=== PATIENT | female | born 1950 | race Caucasian/White ===

== ENCOUNTER 2017-06-20 13:13 | Inpatient (IN) | payer MEDICARE ==
[~2017-06-20] VITALS: Ht 172.7 cm; Wt 102.1 kg
[~2017-06-20 13:13] MED LIST: ARIP15TA7 PO; CLON1TAB4 PO; DES150 PO; LAMO200T PO; SERT-112 PO
[2017-06-20] MEDS ORDERED: IPRATROPIUM BROMIDE (0.02%) 0.5MG/2.5ML NEB HHN STA (13:32)
[2017-06-20] MEDS ORDERED: METHYLPREDNISOLONE SOD SUCC 125 MG/2 ML VIAL IV STA (13:32)
[2017-06-20] MEDS ORDERED: ALBUTEROL (0.083%) 2.5MG/3ML NEB HHN STA (13:32)
[2017-06-20] MEDS ORDERED: MAGNESIUM 2 G PREMIX 50 ML IV ONE (13:45)
[2017-06-20 14:21] LABS: BASOPHILS % 0.2 % (0.0-2.0); EOSINOPHILS % 0.1 % (0.0-5.0); HEMOGLOBIN. 12.2 g/dL (12.0-16.0); LYMPHOCYTES % 7.2 % (20.0-50.0); MEAN CORPUSCULAR HEMOGLOBIN 29.1 pg (28.0-32.0); MEAN CORPUSCULAR VOLUME 88.4 fL (81.0-99.0); MEAN PLATELET VOLUME 7.6 fl (7.4-10.4); MONOCYTES % 3.3 % (2.0-8.0); NEUTROPHILS % 89.2 % (40.0-76.0); PLATELET 184 x1000/uL (130-400); RED BLOOD CELL COUNT 4.19 mill/uL (4.2-5.4); RED CELL DISTRIBUTION WIDTH 14.4 % (11.6-14.6)
[2017-06-20 14:28] LABS: INR 1.1; PROTHROMBIN TIME 11.9 sec (9.4-11.6)
[2017-06-20 15:04] LABS: BG BASE EXCESS 0.4 mmol/L (-2.0-2.0); BG BILEVEL POS AIRWAY PRESSURE 15/5; BG CARBOXYHEMOGLOBIN 0.5 % (0.5-1.5); BG DEOXYHEMOGLOBIN 0.7 % (0.0-5.0); BG FRACTION INSPIRED OXYGEN 100; BG HCO3 ACT 25.7 mmol/L (22.0-26.0); BG METHEMOGLOBIN 0.3 % (0.0-1.5); BG OXYGEN SATURATION 99.3 % (92.0-98.5); BG OXYHEMOGLOBIN 98.5 % (94.0-97.0); BG PCO2 44.1 mmHg (35.0-45.0); BG PH 7.383 (7.350-7.450); BG PO2 263.1 mmHg (75.0-100.0); BG SAMPLE SITE RIGHT BRACHIAL; BG VENT MODE MASK - BIPAP
[2017-06-20 15:28] LABS: CARBON DIOXIDE 27 mEq/L (21-32); CHLORIDE 104 mEq/L (98-107)
[2017-06-20 15:30] LABS: *AMPHETAMINES SCREEN URINE NEGATIVE (NEGATIVE); *BARBITURATES SCREEN URINE NEGATIVE (NEGATIVE); *BENZODIAZEPINES SCREEN URINE NEGATIVE (NEGATIVE); *COCAINE SCREEN URINE NEGATIVE (NEGATIVE); CANNABINOID URINE SCREEN NEGATIVE (NEGATIVE); METHADONE URINE SCREEN NEGATIVE (NEGATIVE); OPIATES URINE SCREEN NEGATIVE (NEGATIVE); PHENCYCLIDINE URINE SCREEN NEGATIVE (NEGATIVE)
[2017-06-20 15:36] LABS: TROPONIN I < 0.02 ng/mL (0.00-0.04)
[2017-06-20] MEDS ORDERED: IOHEXOL-300 100 ML BOTTLE ONE (15:45)
[2017-06-20] MEDS ORDERED: NA PHOS,M-B/NA PHOS,DI-BA ENEMA 118ML PR PRN (16:45)
[2017-06-20] MEDS ORDERED: CLONAZEPAM 1MG TABLET PO PRN (16:45)
[2017-06-20] MEDS ORDERED: NITROGLYCERIN 0.4MG TABLET SL SL PRN (16:45)
[2017-06-20] MEDS ORDERED: LORAZEPAM 0.5MG TABLET PO PRN (16:45)
[2017-06-20] MEDS ORDERED: DIPHENHYDRAMINE 50MG/ML VIAL IV PRN (16:45)
[2017-06-20] MEDS ORDERED: ACETAMINOPHEN 325MG TABLET PO PRN (16:45)
[2017-06-20] MEDS ORDERED: ONDANSETRON HCL 4MG/2ML VIAL IV PRN (16:45)
[2017-06-20] MEDS ORDERED: IPRATROPIUM/ALBUTEROL 0.5-3(2.5)MG/3ML NEB INH PRN (16:45)
[2017-06-20] MEDS ORDERED: ZOLPIDEM TARTRATE 5MG TABLET PO PRN (16:45)
[2017-06-20] MEDS ORDERED: KETOROLAC 15MG/ML VIAL IV PRN (16:45)
[2017-06-20 17:45] VITALS: BP 104/68
[2017-06-20 18:00] VITALS: BP 104/68
[2017-06-20] MEDS ORDERED: CLONAZEPAM 0.5MG TABLET PO PRN (18:11)
[2017-06-20] MEDS: DILTIAZEM HCL 30MG TABLET PO SCH (19:18)
[2017-06-20 20:00] VITALS: BP 111/57
[2017-06-20] MEDS ORDERED: LEVOFLOXACIN 500MG PREMIX 100 ML IV SCH (20:00)
[2017-06-20] MEDS: FAMOTIDINE 20MG/2ML VIAL IV SCH (20:22)
[2017-06-20] MEDS: GUAIFENESIN/DM 600MG/30MG ER TAB 12HR PO SCH (20:22)
[2017-06-20] MEDS: CEFEPIME 1,000 MG in DEXTROSE 5% WATER 50 ML IV SCH (21:06)
[2017-06-20] MEDS: METHYLPREDNISOLONE SOD SUCC 125 MG/2 ML VIAL IV SCH (21:07)
[2017-06-20 22:00] VITALS: BP 165/84
[2017-06-20 23:41] LABS: CREATINE KINASE 247 IU/L (26-192); CREATINE KINASE MB FRACTION 2.6 ng/mL (0.5-3.6); TROPONIN I < 0.02 ng/mL (0.00-0.04)
[2017-06-21] VITALS (12 sets, daily range): BP systolic 103–135; BP diastolic 37–76
[2017-06-21] MEDS: DILTIAZEM HCL 30MG TABLET PO SCH ×4 (00:39→17:06)
[2017-06-21] MEDS: IPRATROPIUM/ALBUTEROL 0.5-3(2.5)MG/3ML NEB HHN SCH ×5 (04:30→20:05)
[2017-06-21] MEDS: METHYLPREDNISOLONE SOD SUCC 125 MG/2 ML VIAL IV SCH ×3 (06:10→20:45)
[2017-06-21] MEDS: FAMOTIDINE 20MG/2ML VIAL IV SCH ×2 (08:30→20:44)
[2017-06-21] MEDS: CEFEPIME 1,000 MG in DEXTROSE 5% WATER 50 ML IV SCH ×2 (08:30→20:45)
[2017-06-21] MEDS: GUAIFENESIN/DM 600MG/30MG ER TAB 12HR PO SCH ×2 (08:31→20:44)
[2017-06-21] MEDS: SERTRALINE HCL 100MG TABLET PO SCH (08:31)
[2017-06-21] MEDS: ASPIRIN 325MG EC TABLET PO SCH (08:31)
[2017-06-21] MEDS: ARIPIPRAZOLE 15MG TABLET PO SCH (08:31)
[2017-06-21] MEDS ORDERED: ENOXAPARIN 40MG/0.4ML SYR SUBCUT SCH (09:00)
[2017-06-21 09:34] LABS: CREATINE KINASE 201 IU/L (26-192); CREATINE KINASE MB FRACTION 2.2 ng/mL (0.5-3.6); TROPONIN I < 0.02 ng/mL (0.00-0.04)
[2017-06-21] MEDS: BUDESONIDE 0.5MG/2ML NEB HHN SCH ×2 (16:39→20:05)
[2017-06-21] MEDS: LEVOFLOXACIN 500MG PREMIX 100 ML IV SCH (17:07)
[2017-06-21] MEDS: ENOXAPARIN 30MG/0.3ML SYR SUBCUT SCH (20:45)
[2017-06-22] VITALS (11 sets, daily range): BP systolic 126–151; BP diastolic 73–96
[2017-06-22] MEDS: DILTIAZEM HCL 30MG TABLET PO SCH ×5 (00:06→23:26)
[2017-06-22] MEDS: IPRATROPIUM/ALBUTEROL 0.5-3(2.5)MG/3ML NEB HHN SCH ×6 (00:30→20:13)
[2017-06-22] MEDS: METHYLPREDNISOLONE SOD SUCC 125 MG/2 ML VIAL IV SCH (05:21)
[2017-06-22] MEDS: FAMOTIDINE 20MG/2ML VIAL IV SCH ×2 (08:38→20:51)
[2017-06-22] MEDS: CEFEPIME 1,000 MG in DEXTROSE 5% WATER 50 ML IV SCH ×2 (08:38→20:51)
[2017-06-22] MEDS: ARIPIPRAZOLE 15MG TABLET PO SCH (08:38)
[2017-06-22] MEDS: GUAIFENESIN/DM 600MG/30MG ER TAB 12HR PO SCH ×2 (08:38→20:51)
[2017-06-22] MEDS: ASPIRIN 325MG EC TABLET PO SCH (08:38)
[2017-06-22] MEDS: SERTRALINE HCL 100MG TABLET PO SCH (08:38)
[2017-06-22] MEDS: ENOXAPARIN 30MG/0.3ML SYR SUBCUT SCH ×2 (08:39→20:51)
[2017-06-22] MEDS: BUDESONIDE 0.5MG/2ML NEB HHN SCH ×2 (08:57→20:13)
[2017-06-22] MEDS: LEVOFLOXACIN 500MG PREMIX 100 ML IV SCH (11:01)
[2017-06-22] MEDS: GUAIFENESIN 200MG/10ML SUGAR FREE UDC PO PRN ×2 (12:11→20:55)
[2017-06-22] MEDS: TRAMADOL 50MG TABLET PO PRN ×2 (12:14→23:30)
[2017-06-22] MEDS: DOCUSATE SODIUM 100MG CAPSULE PO PRN (12:14)
[2017-06-22] MEDS: METHYLPREDNISOLONE SOD SUCC 40 MG/ML VIAL IV SCH ×2 (13:26→20:51)
[2017-06-23] VITALS (10 sets, daily range): BP systolic 123–162; BP diastolic 69–99
[2017-06-23] MEDS: IPRATROPIUM/ALBUTEROL 0.5-3(2.5)MG/3ML NEB HHN SCH ×5 (00:32→17:11)
[2017-06-23] MEDS: DILTIAZEM HCL 30MG TABLET PO SCH ×3 (05:06→17:50)
[2017-06-23] MEDS: METHYLPREDNISOLONE SOD SUCC 40 MG/ML VIAL IV SCH (05:06)
[2017-06-23] MEDS: CEFEPIME 1,000 MG in DEXTROSE 5% WATER 50 ML IV SCH (08:43)
[2017-06-23] MEDS: ASPIRIN 325MG EC TABLET PO SCH (08:44)
[2017-06-23] MEDS: SERTRALINE HCL 100MG TABLET PO SCH (08:44)
[2017-06-23] MEDS: FAMOTIDINE 20MG/2ML VIAL IV SCH (08:44)
[2017-06-23] MEDS: ENOXAPARIN 30MG/0.3ML SYR SUBCUT SCH (08:44)
[2017-06-23] MEDS: ARIPIPRAZOLE 15MG TABLET PO SCH (08:45)
[2017-06-23] MEDS: GUAIFENESIN/DM 600MG/30MG ER TAB 12HR PO SCH (08:45)
[2017-06-23] MEDS: BUDESONIDE 0.5MG/2ML NEB HHN SCH (09:50)
[2017-06-23] MEDS ORDERED: PREDNISONE 20MG TABLET PO SCH (10:45)
[2017-06-23] MEDS ORDERED: LEVOFLOXACIN 250MG TABLET PO SCH (11:00)
[2017-06-23] MEDS: DOCUSATE SODIUM 100MG CAPSULE PO PRN (11:29)
[2017-06-23] MEDS: GUAIFENESIN 200MG/10ML SUGAR FREE UDC PO PRN ×2 (11:29→17:49)
== END 2017-06-23 18:50 | DRG 871 ==
LOC: ER 13:13 → EDBEDREQ 16:12 → EDBEDREQTM 16:12 → ENRESERV 16:24 → SUPCPDRO 16:41 → 5EST 16:43
PROVIDERS: ADMIT Internal Medicine; ATTEND Internal Medicine
PROC: 5A09457 Assistance with Respiratory Ventilation, 24-96 Consecutive Hours, Continuous Positive Airway Pressure (ICD-10-PCS; principal; 2017-06-20)
DX: A41.9 Sepsis, unspecified organism (principal); J96.00 Acute respiratory failure, unspecified whether with hypoxia or hypercapnia; G93.40 Encephalopathy, unspecified; E44.0 Moderate protein-calorie malnutrition; J18.1 Lobar pneumonia, unspecified organism; M62.82 Rhabdomyolysis; E87.1 Hypo-osmolality and hyponatremia; E66.01 Morbid (severe) obesity due to excess calories; J44.1 Chronic obstructive pulmonary disease with (acute) exacerbation; L03.311 Cellulitis of abdominal wall; J44.0 Chronic obstructive pulmonary disease with (acute) lower respiratory infection; F15.90 Other stimulant use, unspecified, uncomplicated; F32.9 Major depressive disorder, single episode, unspecified; F41.9 Anxiety disorder, unspecified; F17.210 Nicotine dependence, cigarettes, uncomplicated; Y95 Nosocomial condition; Z90.49 Acquired absence of other specified parts of digestive tract; Z88.2 Allergy status to sulfonamides; Z68.34 Body mass index [BMI] 34.0-34.9, adult
CPT/HCPCS: 36415; 36600; 51702; 70450; 71010; 80053; 80061; 80305; 82375; 82550; 82553; 82805; 82962; 83036; 83605; 83690; 83880; 84484; 85025; 85610; 87040; 93005; 93970; 94640; 94660; 94664; 96365; 96375; 97116; 97162; 97165; 99291; 99406; J0692; J1650; J1956; J2920; J2930; J3475; J3490; J7040; J7060; J7512; J7611; J7620; J7626; Q9967; A4315

== ENCOUNTER 2021-05-09 10:16 | Inpatient (IN) | payer MEDICARE ==
[~2021-05-09] VITALS: Ht 172.7 cm; Wt 97.1 kg
[~2021-05-09 10:16] MED LIST changes: +ARIP15TA14 PO; -ARIP15TA7 PO; +CLON1TAB12 PO; -CLON1TAB4 PO; -LAMO200T PO; +LAMO200T9 PO
[2021-05-09] MEDS ORDERED: SODIUM CHLORIDE 0.9% 1,000 ML IV ONE ×2 (10:45→18:00)
[2021-05-09 10:54] LABS: BASOPHILS % 0.4 % (0.0-2.0); EOSINOPHILS % 1.2 % (0.0-5.0); HEMATOCRIT. 28.8 % (36.0-48.0); HEMOGLOBIN. 9.6 g/dL (12.0-16.0); LYMPHOCYTES % 15.2 % (20.0-50.0); MEAN CORPUSCULAR HEMOGLOBIN 30.6 pg (28.0-32.0); MEAN CORPUSCULAR VOLUME 91.9 fL (81.0-99.0); MEAN PLATELET VOLUME 6.3 fl (7.4-10.4); MONOCYTES % 5.1 % (2.0-8.0); NEUTROPHILS % 78.1 % (40.0-76.0); PLATELET 172 x1000/uL (130-400); RED BLOOD CELL COUNT 3.13 mill/uL (4.2-5.4); RED CELL DISTRIBUTION WIDTH 14.4 % (11.6-14.6)
[2021-05-09 11:03] LABS: PROTHROMBIN TIME 10.9 sec (9.6-11.0)
[2021-05-09 11:12] LABS: CHLORIDE 109 mEq/L (98-107)
[2021-05-09] MEDS ORDERED: PANTOPRAZOLE SODIUM 40 MG/VIAL IV ONE (18:00)
[2021-05-09 18:50] LABS: BASOPHILS % 0.5 % (0.0-2.0); EOSINOPHILS % 0.6 % (0.0-5.0); HEMATOCRIT. 21.8 % (36.0-48.0); HEMOGLOBIN. 7.2 g/dL (12.0-16.0); LYMPHOCYTES % 21.7 % (20.0-50.0); MEAN CORPUSCULAR VOLUME 91.4 fL (81.0-99.0); MEAN PLATELET VOLUME 6.6 fl (7.4-10.4); MONOCYTES % 5.4 % (2.0-8.0); NEUTROPHILS % 71.8 % (40.0-76.0); PLATELET 187 x1000/uL (130-400); RED BLOOD CELL COUNT 2.38 mill/uL (4.2-5.4); RED CELL DISTRIBUTION WIDTH 14.4 % (11.6-14.6)
[2021-05-10] MEDS ORDERED: LORAZEPAM 2MG/ML CPJ IV PRN (03:00)
[2021-05-10] MEDS ORDERED: PANTOPRAZOLE SODIUM 40 MG/VIAL IV SCH (03:15)
[2021-05-10] MEDS ORDERED: DEXT 5%/0.45% NACL 1000ML 1,000 ML IV SCH (03:15)
[2021-05-10 09:09] LABS: BASOPHILS % 0.5 % (0.0-2.0); EOSINOPHILS % 0.3 % (0.0-5.0); HEMATOCRIT. 26.1 % (36.0-48.0); HEMOGLOBIN. 8.7 g/dL (12.0-16.0); LYMPHOCYTES % 27.3 % (20.0-50.0); MEAN CORPUSCULAR HEMOGLOBIN 30.5 pg (28.0-32.0); MEAN PLATELET VOLUME 6.9 fl (7.4-10.4); MONOCYTES % 6.6 % (2.0-8.0); NEUTROPHILS % 65.3 % (40.0-76.0); PLATELET 164 x1000/uL (130-400); RED BLOOD CELL COUNT 2.86 mill/uL (4.2-5.4); RED CELL DISTRIBUTION WIDTH 14.2 % (11.6-14.6)
[2021-05-10 11:01] LABS: CHLORIDE 114 mEq/L (98-107)
[2021-05-10 11:07] LABS: TOTAL IRON BINDING CAPACITY 281 ug/dL (250-450)
[2021-05-10 11:36] LABS: VITAMIN B12 SERUM 210 pg/mL (211-911)
[2021-05-10] MEDS ORDERED: INFLUENZA VACCINE 05/PF 0.5 ML SYRINGE IM ONE (11:45)
[2021-05-10 12:00] VITALS: BP 135/66
[2021-05-10] MEDS ORDERED: PNEUMOCOCCAL 23-VAL P-SAC VAC 0.5 ML IM ONE (12:00)
[2021-05-10 12:07] VITALS: BP 135/65
[2021-05-10 12:57] LABS: FERRITIN 30 ng/mL (10-291)
[2021-05-10 13:34] LABS: HEMATOCRIT 22.1 % (36.0-48.0); HEMOGLOBIN 7.7 g/dL (12.0-16.0)
[2021-05-10] MEDS: DEXT 5%/0.45% NACL 1000ML 1,000 ML IV SCH (14:40)
[2021-05-10] MEDS ORDERED: ACETAMINOPHEN 325MG TABLET PO PRN (15:00)
[2021-05-10] MEDS ORDERED: ACETAMINOPHEN 650MG SUPP PR PRN (15:00)
[2021-05-10] MEDS ORDERED: ONDANSETRON HCL 4MG/2ML INJ IV PRN (15:00)
[2021-05-10] MEDS ORDERED: MORPHINE SULFATE 2 MG/ML CPJ (NOT FOR IM USE) IV PRN (15:00)
[2021-05-10] MEDS ORDERED: BISACODYL 10MG SUPP PR PRN (15:00)
[2021-05-10] MEDS ORDERED: IPRATROPIUM/ALBUTEROL 0.5-3(2.5)MG/3ML NEB HHN PRN (15:00)
[2021-05-10] MEDS ORDERED: NALOXONE HCL 0.4MG/ML VIAL IV PRN (15:15)
[2021-05-10 16:05] VITALS: BP 147/67
[2021-05-10] MEDS: PANTOPRAZOLE SODIUM 40 MG/VIAL IV SCH (17:11)
[2021-05-10 20:22] VITALS: BP 160/67
[2021-05-10 21:17] LABS: HEMOGLOBIN 7.2 g/dL (12.0-16.0)
[2021-05-10 21:33] LABS: CLARITY URINE CLEAR (CLEAR); COLOR URINE YELLOW (YELLOW); KETONES URINE NEGATIVE (NEGATIVE); LEUKOCYTE ESTERASE URINE 1+ (NEGATIVE); NITRITE URINE NEGATIVE (NEGATIVE); OCCULT BLOOD URINE 2+ (NEGATIVE); PROTEIN URINE NEGATIVE (NEGATIVE)
[2021-05-10 21:58] LABS: *AMPHETAMINES SCREEN URINE PRESUMTIVE POSITIVE (NEGATIVE); *BARBITURATES SCREEN URINE NEGATIVE (NEGATIVE); *BENZODIAZEPINES SCREEN URINE NEGATIVE (NEGATIVE); *COCAINE SCREEN URINE NEGATIVE (NEGATIVE); METHADONE URINE SCREEN NEGATIVE (NEGATIVE); OPIATES URINE SCREEN NEGATIVE (NEGATIVE); PHENCYCLIDINE URINE SCREEN NEGATIVE (NEGATIVE)
[2021-05-10 21:59] LABS: CANNABINOID URINE SCREEN NEGATIVE (NEGATIVE)
[2021-05-10 22:24] VITALS: BP 144/102
[2021-05-10 23:00] VITALS: BP 120/40
[2021-05-11] VITALS (9 sets, daily range): BP systolic 127–148; BP diastolic 65–86
[2021-05-11 06:34] LABS: BASOPHILS % 0.5 % (0.0-2.0); EOSINOPHILS % 2.4 % (0.0-5.0); HEMATOCRIT. 21.3 % (36.0-48.0); HEMOGLOBIN. 7.1 g/dL (12.0-16.0); LYMPHOCYTES % 25.9 % (20.0-50.0); MEAN CORPUSCULAR HEMOGLOBIN 30.4 pg (28.0-32.0); MEAN PLATELET VOLUME 6.8 fl (7.4-10.4); MONOCYTES % 6.8 % (2.0-8.0); NEUTROPHILS % 64.4 % (40.0-76.0); PLATELET 155 x1000/uL (130-400); RED BLOOD CELL COUNT 2.34 mill/uL (4.2-5.4); RED CELL DISTRIBUTION WIDTH 14.4 % (11.6-14.6)
[2021-05-11 06:46] LABS: PROTHROMBIN TIME 10.9 sec (9.6-11.0)
[2021-05-11 08:32] LABS: CHLORIDE 110 mEq/L (98-107)
[2021-05-11] MEDS: PANTOPRAZOLE SODIUM 40 MG/VIAL IV SCH ×2 (09:00→17:15)
[2021-05-11] MEDS: HYDROCODONE/ACETAMINOPHEN 5/325MG TABLET PO PRN (18:32)
[2021-05-11 20:15] LABS: HEMATOCRIT 26.5 % (36.0-48.0)
[2021-05-11] MEDS: DEXT 5%/0.45% NACL 1000ML 1,000 ML IV SCH (20:20)
[2021-05-12 00:30] VITALS: BP 153/76
[2021-05-12 00:43] LABS: HEMATOCRIT 25.5 % (36.0-48.0); HEMOGLOBIN 8.8 g/dL (12.0-16.0)
[2021-05-12] MEDS: DEXT 5%/0.45% NACL 1000ML 1,000 ML IV SCH ×2 (02:50→16:38)
[2021-05-12 04:00] VITALS: BP 156/74
[2021-05-12 08:00] VITALS: BP 154/104
[2021-05-12 08:39] LABS: BASOPHILS % 0.4 % (0.0-2.0); EOSINOPHILS % 3.3 % (0.0-5.0); HEMATOCRIT. 24.3 % (36.0-48.0); HEMOGLOBIN. 8.2 g/dL (12.0-16.0); LYMPHOCYTES % 24.9 % (20.0-50.0); MEAN CORPUSCULAR HEMOGLOBIN 30.5 pg (28.0-32.0); MEAN CORPUSCULAR VOLUME 90.3 fL (81.0-99.0); MEAN PLATELET VOLUME 6.8 fl (7.4-10.4); MONOCYTES % 9.5 % (2.0-8.0); NEUTROPHILS % 61.9 % (40.0-76.0); PLATELET 146 x1000/uL (130-400); RED BLOOD CELL COUNT 2.69 mill/uL (4.2-5.4); RED CELL DISTRIBUTION WIDTH 13.9 % (11.6-14.6)
[2021-05-12] MEDS: PANTOPRAZOLE SODIUM 40 MG/VIAL IV SCH ×2 (08:41→16:37)
[2021-05-12 08:46] LABS: CHLORIDE 111 mEq/L (98-107)
[2021-05-12 12:00] VITALS: BP 128/64
[2021-05-12 12:24] LABS: HEMOGLOBIN 8.4 g/dL (12.0-16.0)
[2021-05-12] MEDS ORDERED: MIDAZOLAM HCL 2 MG/2 ML VIAL ONE (13:25)
[2021-05-12] MEDS ORDERED: PROPOFOL 200MG/20ML VIAL IV ONE (13:25)
[2021-05-12] MEDS ORDERED: ONDANSETRON HCL 4MG/2ML INJ ONE (13:29)
[2021-05-12 16:00] VITALS: BP 148/81
[2021-05-12] MEDS: CYANOCOBALAMIN 1000MCG/ML VIAL IM SCH (16:37)
[2021-05-12] MEDS ORDERED: POTASSIUM PHOS,M-BASIC-D-BASIC 15 MMOL in DEXT 5% WATER 245 ML IV NR (18:45)
[2021-05-12 19:35] LABS: HEMATOCRIT 23.2 % (36.0-48.0)
[2021-05-12 20:00] VITALS: BP 145/92
[2021-05-12] MEDS: HYDROCODONE/ACETAMINOPHEN 5/325MG TABLET PO PRN (20:49)
[2021-05-13] VITALS (9 sets, daily range): BP systolic 102–145; BP diastolic 52–81
[2021-05-13 01:02] LABS: HEMATOCRIT 25.1 % (36.0-48.0); HEMOGLOBIN 8.7 g/dL (12.0-16.0)
[2021-05-13 05:57] LABS: BASOPHILS % 0.7 % (0.0-2.0); EOSINOPHILS % 4.4 % (0.0-5.0); HEMATOCRIT. 27.1 % (36.0-48.0); HEMOGLOBIN. 9.4 g/dL (12.0-16.0); LYMPHOCYTES % 32.2 % (20.0-50.0); MEAN CORPUSCULAR HEMOGLOBIN 31.7 pg (28.0-32.0); MEAN CORPUSCULAR VOLUME 91.7 fL (81.0-99.0); MEAN PLATELET VOLUME 6.8 fl (7.4-10.4); MONOCYTES % 9.7 % (2.0-8.0); PLATELET 154 x1000/uL (130-400); RED BLOOD CELL COUNT 2.95 mill/uL (4.2-5.4); RED CELL DISTRIBUTION WIDTH 13.8 % (11.6-14.6)
[2021-05-13 06:38] LABS: CHLORIDE 110 mEq/L (98-107)
[2021-05-13] MEDS: PANTOPRAZOLE SODIUM 40 MG/VIAL IV SCH (10:00)
[2021-05-13] MEDS: CYANOCOBALAMIN 1000MCG/ML VIAL IM SCH (10:00)
[2021-05-13 11:42] LABS: HEMATOCRIT 25.1 % (36.0-48.0); HEMOGLOBIN 8.4 g/dL (12.0-16.0)
[2021-05-13] MEDS ORDERED: OMEP40CA20 MT (15:03)
[2021-05-13] MEDS ORDERED: TRAM50TA3 MT (15:06)
== END 2021-05-13 16:00 | disposition home or self-care (01) | DRG 73 ==
LOC: ER 10:57 → EDBEDREQTM 11:25 → EDBEDREQ 18:07 → EDBEDREQSVC 18:07 → MICUSO 05-10 05:49 → 5EST 05-10 11:51
PROVIDERS: ADMIT Internal Medicine; ATTEND Internal Medicine
PROC: 30233N1 Transfusion of Nonautologous Red Blood Cells into Peripheral Vein, Percutaneous Approach (ICD-10-PCS; principal; 2021-05-09)
PROC: 0DB78ZX Excision of Stomach, Pylorus, Via Natural or Artificial Opening Endoscopic, Diagnostic (ICD-10-PCS; 2021-05-12)
DX: G90.8 Other disorders of autonomic nervous system (principal); K25.4 Chronic or unspecified gastric ulcer with hemorrhage; K29.71 Gastritis, unspecified, with bleeding; E44.0 Moderate protein-calorie malnutrition; J44.1 Chronic obstructive pulmonary disease with (acute) exacerbation; E66.9 Obesity, unspecified; E86.0 Dehydration; F32.A Depression, unspecified; F41.9 Anxiety disorder, unspecified; K76.0 Fatty (change of) liver, not elsewhere classified; R16.2 Hepatomegaly with splenomegaly, not elsewhere classified; Z20.822 Contact with and (suspected) exposure to COVID-19; K44.9 Diaphragmatic hernia without obstruction or gangrene; Z60.2 Problems related to living alone; D50.0 Iron deficiency anemia secondary to blood loss (chronic); K57.90 Diverticulosis of intestine, part unspecified, without perforation or abscess without bleeding; R73.9 Hyperglycemia, unspecified; Z68.32 Body mass index [BMI] 32.0-32.9, adult; Z90.49 Acquired absence of other specified parts of digestive tract; Z79.899 Other long term (current) drug therapy; Z88.2 Allergy status to sulfonamides
CPT/HCPCS: 36415; 71045; 74176; 80048; 80053; 80061; 80305; 81003; 82607; 82728; 83036; 83540; 83550; 83735; 83880; 84100; 84443; 85014; 85018; 85025; 85044; 86850; 86900; 86920; 87426; 88305; 88312; 88313; 90686; 90732; 93005; 93306; 93970; 97162; 99291; C9113; J2060; J2250; J2270; J2405; J2704; J3420; J3490; J7030; J7040; J7060; P9016

== ENCOUNTER 2021-11-19 09:40 | Emergency (ER) | payer MEDICARE ==
[~2021-11-19] VITALS: Ht 165.1 cm; Wt 80.0 kg
[~2021-11-19 09:40] MED LIST changes: +OMEP40CA20 MT; +TRAM50TA3 MT
[2021-11-19] MEDS ORDERED: ACETAMINOPHEN 325MG TABLET PO ONE (11:00)
[2021-11-19 11:20] LABS: CHLORIDE 111 mEq/L (98-107)
[2021-11-19 11:26] LABS: BASOPHILS % 0.3 % (0.0-2.0); EOSINOPHILS % 0.1 % (0.0-5.0); HEMATOCRIT. 26.4 % (36.0-48.0); HEMOGLOBIN. 8.7 g/dL (12.0-16.0); LYMPHOCYTES % 11.5 % (20.0-50.0); MEAN CORPUSCULAR HEMOGLOBIN 28.4 pg (28.0-32.0); MEAN CORPUSCULAR VOLUME 86.3 fL (81.0-99.0); MEAN PLATELET VOLUME 7.1 fl (7.4-10.4); MONOCYTES % 5.9 % (2.0-8.0); NEUTROPHILS % 82.2 % (40.0-76.0); PLATELET 170 x1000/uL (130-400); RED BLOOD CELL COUNT 3.06 mill/uL (4.2-5.4); RED CELL DISTRIBUTION WIDTH 15.5 % (11.6-14.6)
[2021-11-19 11:31] LABS: B-HCG QUANTITATIVE 4 mIU/mL (<3); CREATINE KINASE 71 IU/L (26-192)
[2021-11-19] MEDS ORDERED: SODIUM CHLORIDE 0.9% 1,000 ML IV ONE (13:00)
[2021-11-19 22:00] VITALS: BP 138/65
== END 2021-11-19 22:35 | disposition left against medical advice (07) ==
LOC: ER 09:54 → CANBEDREQ 11-20 20:17
DX: R55 Syncope and collapse (principal); N93.9 Abnormal uterine and vaginal bleeding, unspecified; D64.9 Anemia, unspecified; J44.9 Chronic obstructive pulmonary disease, unspecified; F41.9 Anxiety disorder, unspecified; F32.A Depression, unspecified; F15.10 Other stimulant abuse, uncomplicated; E66.9 Obesity, unspecified; Z68.29 Body mass index [BMI] 29.0-29.9, adult; Z20.822 Contact with and (suspected) exposure to COVID-19; Z90.49 Acquired absence of other specified parts of digestive tract; Z88.2 Allergy status to sulfonamides
CPT/HCPCS: 36415; 70450; 73060; 73090; 76830; 76856; 80053; 82550; 84484; 84702; 85025; 86850; 86900; 86901; 86920; 87426; 99284; J7030